=== PATIENT | male | born 1975 | race Caucasian/White ===

== ENCOUNTER → 2024-08-25 | Outpatient (CLI) | payer MEDICAID ==
[~2024-08-25] MED LIST: BUSPIRONE15 MG PO; BUSPIRONE30 MG PO; HYDR25T PO; LEXAPRO10 MG PO; LEXAPRO20 MG PO; LISINOPRIL20 MG PO; Lopressor25 MG PO; VITAMIN D32000 UNI1 PO
== END | disposition home or self-care (01) ==
LOC: RAD 13:13
PROVIDERS: ATTEND Nurse Practitioner Family
DX: M17.0 Bilateral primary osteoarthritis of knee (principal); M25.561 Pain in right knee; M25.562 Pain in left knee